=== PATIENT | female | born 1940 | race Hispanic/Latino ===

== ENCOUNTER 2017-04-18 14:08 | Outpatient (CLI) | payer MEDICARE ==
--- NOTE | 2017-04-18 15:39 | RAD ---
CERVICAL SPINE THREE VIEWS: History: 76-year-old female with history of radiculopathy of the cervical region. FINDINGS: Neutral, flexion, and extension lateral views of the cervical spine are performed. There are disc osteophytosis changes with disc space narrowing at C5-6. There is mild disc disease at C6-7. There is generalized facet arthrorisis. No evidence for abnormal translation between flexion a nd extension. No prevertebral soft tissue swelling. IMPRESSION: Extensive disc osteophytosis with disc space narrowing at C5-6 without evidence of abnormal translati on between flexion and extension. POS: [facility]
--- NOTE | 2017-04-18 15:45 | MRI ---
MRI OF THE CERVICAL SPINE WITHOUT CONTRAST: INDICATION: Neck pain with radicular symptoms and into the left arm and left thumb for 3 weeks. History of fall 15 years ago without history of surgery. COMPARISON: None. TECHNIQUE: Multiplanar, multisequence MR images were obtained of the cervical spine without IV contrast. FINDINGS: The bone marrow signal intensity appears within normal limits. No acute fracture is evident. There is reversible of normal cervical lordosis. Visualized aspects of the posterior fossa are normal-appearing. Visualized aspects of the prevertebral soft tissues are normal-appearing. At C2-C3, there is severe left and mild right facet joint degenerative change. There is uncovertebra l hypertrophy in combination with the facet joint causing mild left neural foraminal narrowing. At C3-4, there is broad-based bulge with uncovertebral hypertrophy and facet joint degenerative kelly e. Constellation of findings induces mild central canal narrowing without cord compression. There i s mild right neural foraminal narrowing. At C4-5, there is a mild broad-based disk bulge causing mild central canal narrowing and mild ventral effacement of the spinal cord without cord signal abnormality. There is uncovertebral hypertrophy a nd facet joint degenerative change inducing mild bilateral neural foraminal narrowing. At C5-6, there is a broad-based disk-osteophyte complex with uncovertebral hypertrophy with fact join t degenerative change inducing mild central canal narrowing and mild ventral effacement of the spinal cord without spinal cord signal abnormality. The uncovertebral hypertrophy and facet degenerative c hange at this level induces severe bilateral neural foraminal narrowing. At C6-7, there is a broad-based bulge with uncovertebral hypertrophy and facet joint degenerative nereida nge. The uncovertebral hypertrophy is prominent bilaterally and induces severe bilateral neural fora haile narrowing. The broad-based bulge causes mild central canal narrowing at this level without cor d contact. C7-T1, there is a mild broad-based bulge causing mild bilateral neural foraminal narrowing. 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 This is most severe at the C5-6 level where there is mild to moderate central canal narrowing with mild ventral effacement of the spinal cord. POS: [facility]
== END 2017-04-18 14:09 | disposition home or self-care (01) ==
LOC: MRI 14:08
PROVIDERS: ATTEND Nurse Practitioner Family
DX: M47.22 Other spondylosis with radiculopathy, cervical region (principal); M25.78 Osteophyte, vertebrae; M99.81 Other biomechanical lesions of cervical region
CPT/HCPCS: 72050; 72141

== ENCOUNTER 2018-01-25 05:53 | Inpatient (IN) | payer MEDICARE ==
[2018-01-23 10:37] LABS: #Eosinphils 0.3 thou/uL (0.0-0.7); #Lymphocytes 2.1 thou/uL (1.20-3.40); #Monocytes 0.8 thou/uL (0.11-0.59); #Neutrophils 3.9 thou/uL (1.40-6.50); %Basophils 0.7 % (0.0-1.0); %Lymphocytes 29.2 % (21.0-51.0); %Monocytes 10.9 % (0.0-10.0); %Neutrophils 55.2 % (42.0-75.0); Hemoglobin 12.3 g/dL (12.0-16.0); Mean Corpuscular HGB CONC 32.6 g/dL (32.0-36.0); Mean Corpuscular Hemoglobin 30.2 pg (27.0-31.0); Mean Corpuscular Volume 92.4 fL (78.0-98.0); Mean Platelet Volume 8.7 fL (7.4-10.4); Platelet Count 282 thou/uL (130-400); Red Blood Cell (RBC) Count 4.08 mill/uL (4.20-5.40); White Blood Cell (WBC) Count 7.1 thou/uL (4.8-10.8)
[2018-01-23 10:56] LABS: Anion Gap 11 mmol/L (10-20); BUN (Urea Nitrogen) 18 mg/dL (9.8-20.1); Calc. Creatinine Clearance 0 mL/min (70-130); Calcium 9.4 mg/dL (7.8-10.44); Carbon Dioxide 27 mmol/L (23-31); Chloride 103 mmol/L (98-107); Estimated GFR-MDRD 54; Glucose 228 mg/dL (83-110); Potassium 4.2 mmol/L (3.5-5.1); Sodium 137 mmol/L (136-145)
[~2018-01-25 05:53] MED LIST: Fentanyl 250 MCG/5 ML VIAL ONE; Norepinephrine 4 MG/4 ML VIAL ONE
[2018-01-25] MEDS ORDERED: CEFAZOLIN 2 GM/50 ML BAG ONE (06:17)
[2018-01-25] MEDS ORDERED: Albumin 5% 500 ML ONE (06:26)
[2018-01-25] MEDS ORDERED: Insulin Regular 300 UNITS/3 ML VIAL ONE (07:09)
[2018-01-25] MEDS ORDERED: Heparin 10,000 UNITS/1 ML VIAL 30,000 UNITS in Sodium Chloride 0.9% 1,000 ML IVPB SCH (07:15)
[2018-01-25] MEDS ORDERED: Magnesium 5 GM/10 ML VIAL ONE (09:04)
[2018-01-25] MEDS ORDERED: Mannitol 12.5 GM/50 ML ONE (09:04)
[2018-01-25] MEDS ORDERED: Calcium Chloride 1 GM/10 ML Abboject SYRINGE ONE (09:04)
[2018-01-25] MEDS ORDERED: Thrombin 5000 UNITS/5 ML VIAL ONE (09:04)
[2018-01-25] MEDS ORDERED: Heparin 30,000 units/30 ml VIAL ONE (09:04)
[2018-01-25] MEDS ORDERED: PROPOFOL 200 MG/20 ML VIAL ONE (09:04)
[2018-01-25] MEDS ORDERED: Succinylcholine Chloride 20 MG/ML 10 ml SYRINGE FS ONE (09:04)
[2018-01-25] MEDS ORDERED: Protamine Sulfate 250 MG/25 ML VIAL ONE (09:04)
[2018-01-25] MEDS ORDERED: Heparin 5,000 UNITS/ML VIAL ONE (09:04)
[2018-01-25] MEDS ORDERED: Aminocaproic Acid 5 GM/20 ML VIAL ONE (09:04)
[2018-01-25] MEDS ORDERED: Lidocaine 2% PF 100 mg/5 ml Syringe ONE (09:04)
[2018-01-25] MEDS ORDERED: Potassium Chloride 60 MEQ/30 ML VIAL ONE (09:04)
[2018-01-25] MEDS ORDERED: Papaverine 60 MG/2 ML VIAL ONE (09:04)
[2018-01-25] MEDS ORDERED: EPINEPHrine 1 MG/ML AMP ONE (09:04)
[2018-01-25] MEDS ORDERED: Sodium Bicarb 50 MEQ/50 ML VIAL ONE (09:04)
[2018-01-25] MEDS ORDERED: Lidocaine 1% PF 5 ML VIAL ONE (09:04)
[2018-01-25] MEDS ORDERED: Cardioplegic Soln 1,000 ML BAG ONE (09:04)
[2018-01-25] MEDS ORDERED: Bisacodyl 10 MG SUPP PR PRN (12:14)
[2018-01-25] MEDS ORDERED: hydrALAZINE 20 MG/ML VIAL SLOW IVP PRN (12:14)
[2018-01-25] MEDS ORDERED: Guaifenesin DM 100-10/5 ML UDCUP PO PRN (12:14)
[2018-01-25] MEDS ORDERED: Mag-Al 1200 mg/1200 mg/30 ML UDCUP PO PRN (12:14)
[2018-01-25] MEDS ORDERED: Nitroglycerin 50 MG/250 ML BOT 250 ML IVPB PRN (12:14)
[2018-01-25] MEDS ORDERED: Post-Op Insulin Drip Protocol IVPB ONE (12:14)
[2018-01-25] MEDS ORDERED: Norepinephrine 8 MG/0.9% NS 250 ML IVPB PRN (12:14)
[2018-01-25] MEDS ORDERED: Ondansetron PF 4 MG/2 ML Vial IVP PRN (12:14)
[2018-01-25] MEDS ORDERED: DOPamine 400 MG/D5W 250 ML 250 ML IVPB PRN (12:14)
[2018-01-25] MEDS ORDERED: Bisacodyl 5 MG TAB PO PRN (12:14)
[2018-01-25] MEDS ORDERED: Fentanyl 100 MCG/2 ML VIAL SLOW IVP PRN (12:14)
[2018-01-25] MEDS ORDERED: Promethazine HCl 25 MG/ML VIAL IM PRN (12:14)
[2018-01-25] MEDS ORDERED: Acetaminophen 325 MG TAB PO PRN (12:14)
[2018-01-25] MEDS ORDERED: Hetastarch 6% 500 ML 500 ML IVPB PRN (12:14)
[2018-01-25] MEDS ORDERED: Magnesium Sulfate 5 GM in Sodium Chloride 0.9% 250 ML 1,000 ML IV SCH (12:15)
[2018-01-25] MEDS ORDERED: Dextrose 50% Abboject 50 ML SYRINGE SLOW IVP PRN (12:47)
[2018-01-25] MEDS ORDERED: Dextrose 5% in Water 1,000 ML IV PRN (12:47)
[2018-01-25] MEDS ORDERED: Norepinephrine 8 MG/0.9% NS 250 ML ONE (12:56)
[2018-01-25 12:59] LABS: Hemoglobin 10.3 g/dL (12.0-16.0); Mean Corpuscular HGB CONC 32.8 g/dL (32.0-36.0); Mean Corpuscular Volume 94.5 fL (78.0-98.0); Mean Platelet Volume 8.6 fL (7.4-10.4); Platelet Count 196 thou/uL (130-400); Red Blood Cell (RBC) Count 3.31 mill/uL (4.20-5.40)
[2018-01-25 13:04] LABS: INR-International Normal Ratio 1.3; PTT 30.5 SEC (22.9-36.1); Prothrombin Time 16.6 SEC (12.0-14.7)
[2018-01-25] MEDS: Sodium Chloride 0.9% 1,000 ML IV SCH ×2 (13:08→22:40)
[2018-01-25] MEDS: Insulin Regular 300 UNITS/3 ML VIAL SC PRN ×2 (13:08→13:58)
[2018-01-25 13:13] LABS: Base Excess (BEa) -5.1 mEq/L (-2.0 to +3.0); CO2 Tension 36.8 mmHg (35.0-45.0); Calcium, Ionized 1.09 mmol/L (1.12-1.30); Carboxyhemoglobin (COHb) 0.8 gm% (0.0-3.0); Hemoglobin (Hb) 10.9 g/dL (12.0-16.0); O2 Tension (PaO2) 90.3 mmHg (> 70.0); pH, Arterial 7.35 (7.35-7.45)
[2018-01-25 13:14] LABS: Puncture Site ALINE
[2018-01-25 13:18] LABS: Band 15 % (5-11); Lymphocytes 12 % (21-51); MDiff Complete? YES; Monocytes 3 % (0-10); Neutrophil 70 % (42-75); PLT Morphology Comment Appears Adequate; Polychromasia SLIGHT = 2-3 cells (100X) (0-2/hpf)
[2018-01-25 13:21] LABS: Anion Gap 11 mmol/L (10-20); BUN (Urea Nitrogen) 15 mg/dL (9.8-20.1); Calc. Creatinine Clearance 81 mL/min (70-130); Calcium 7.8 mg/dL (7.8-10.44); Carbon Dioxide 21 mmol/L (23-31); Chloride 113 mmol/L (98-107); Estimated GFR-MDRD 74; Glucose 165 mg/dL (83-110); Sodium 141 mmol/L (136-145)
[2018-01-25] MEDS: CEFAZOLIN 2 GM/50 ML BAG IVPB SCH ×2 (14:01→21:07)
[2018-01-25] MEDS: Potassium Chloride 20 MEQ/100 ML PREMIX BAG IVPB PRN (14:31)
--- NOTE | 2018-01-25 14:47 | RAD ---
RADIOGRAPH CHEST 1 VIEW: Date: 01-25-18 Time: 12:52 p.m. HISTORY: 77-year-old female status post open heart surgery. COMPARISON: 06-09-16 FINDINGS: There is a supine image, which is insensitive for pneumothorax. New sternotomy wires. The following n ew life support lines have been placed: ET tube with distal tip in midthoracic trachea, right subclav cipriano line with distal tip overlying the lower portion of right atrium, left paramedian chest tube with distal portion curled over the left midlung field. No consolidation or pulmonary edema. IMPRESSION: Recently status post coronary artery bypass graft surgery with life support lines as above. JOSÉ MIGUEL POS: [facility]
[2018-01-25] MEDS: Fentanyl 100 MCG/2 ML VIAL SLOW IVP PRN (15:31)
[2018-01-25] MEDS ORDERED: Sodium Bicarb 50 MEQ/50 ML Abboject 8.4% SYRINGE ONE (16:16)
[2018-01-25] MEDS: Ketorolac Tromethamine 30 MG/ML VIAL IVP SCH ×2 (16:36→22:35)
--- NOTE | 2018-01-25 17:37 | PDOC.CTH ---
<Megha Andrade - Last Filed: 01/25/18 17:38> Cardiology Progress Note - Subjective The pt seen and examined. No overnight events. No cardiac complaints. - Objective Vital Signs Temp Pulse Resp BP Pulse Ox 01/25/18 16:25 99 01/25/18 16:00 98.4 F 100 01/25/18 14:00 13 01/25/18 12:51 72 121/50 L 01/25/18 12:37 97.7 F 13 100 Weight 193 lb 1.999 oz 01/24/18 01/25/18 01/26/18 06:59 06:59 06:59 Intake Total 850 Output Total 615 Balance 235 - Physical Examination General/Neuro: alert & oriented x3 Neck: no JVD present Lungs: other: (diminished at bases) Heart: RRR Abdomen: soft Extremities: other: (No edema;) - Telemetry Telemetry Rhythm: SR - Labs Result Diagrams: 01/25/18 12:45 01/25/18 12:45 - Assessment/Plan 1. CAD with s/p CABG on 01/25/18 - stable; On ASA 325mg qd. 2. HTN - hypotensive; holding BBlocker/LUH 3. Hyperlipidemia - will resume Statin when she is stable 4. Insulin depend DM - on Insulin drip MAR reviewed Review of Systems - Review of Systems Constitutional: reports: weakness EENTM: reports: no symptoms reported Respiratory: reports: no symptoms reported Cardiac (ROS): reports: no symptoms reported ABD/GI: reports: no symptoms reported : reports: no symptoms reported Musculoskeletal: reports: no symptoms reported <Julián Lopez - Last Filed: 01/25/18 19:39> Cardiology Progress Note - Objective Vital Signs Temp Pulse Resp BP Pulse Ox 01/25/18 16:25 99 01/25/18 16:00 98.4 F 100 01/25/18 14:00 13 01/25/18 12:51 72 121/50 L 01/25/18 12:37 97.7 F 13 100 Weight 193 lb 1.999 oz 01/24/18 01/25/18 01/26/18 06:59 06:59 06:59 Intake Total 1926 Output Total 705 Balance 1221 - Labs Result Diagrams: 01/25/18 17:56 01/25/18 17:56 - Assessment/Plan pt. seen and eval. by me. I agree with the A/P by the EXPERIMENTAL FLIGHT TEST MECHANIC. Pt. doing well post op. Extubated. RRR,chest clear.
[2018-01-25 18:02] LABS: Hemoglobin 9.4 g/dL (12.0-16.0)
[2018-01-25 18:22] LABS: Potassium 4.1 mmol/L (3.5-5.1)
[2018-01-25] MEDS ORDERED: HEXTEND 6% LR 500ML 500 ML IVPB PRN (19:40)
--- NOTE | 2018-01-25 20:11 | EKG ---
Test Reason : POST CABG Blood Pressure : / mmHG Vent. Rate : 068 BPM Atrial Rate : 068 BPM P-R Int : 154 ms QRS Dur : 132 ms QT Int : 508 ms P-R-T Axes : 051 -22 040 degrees QTc Int : 540 ms Normal sinus rhythm Left bundle branch block Abnormal ECG When compared with ECG of 21-AUG-2015 12:49, Vent. rate has decreased BY 38 BPM Left bundle branch block is now Present Minimal criteria for Anterior infarct are no longer Present Confirmed by DENNIS GARCES, DR. Tanner ([id number]) on 01/25/2018 8:11:19 PM Referred By: KALANI Confirmed By:DR. Ciro COLLINS MD
[2018-01-25] MEDS: Famotidine/PF 20 mg/2ml Vial SLOW IVP SCH (21:07)
[2018-01-26] MEDS: HYDROcodone/Acetaminophen 5/325 mg Tablet PO PRN ×6 (04:51→22:15)
[2018-01-26 04:56] LABS: #Basophils 0.1 thou/uL (0.0-0.2); #Lymphocytes 1.7 thou/uL (1.20-3.40); #Monocytes 1.6 thou/uL (0.11-0.59); #Neutrophils 13.5 thou/uL (1.40-6.50); %Basophils 0.3 % (0.0-1.0); %Eosinophils 0.1 % (0.0-10.0); %Monocytes 9.4 % (0.0-10.0); %Neutrophils 80.3 % (42.0-75.0); Hemoglobin 8.5 g/dL (12.0-16.0); Mean Corpuscular HGB CONC 33.5 g/dL (32.0-36.0); Mean Corpuscular Hemoglobin 31.7 pg (27.0-31.0); Mean Corpuscular Volume 94.4 fL (78.0-98.0); Mean Platelet Volume 8.8 fL (7.4-10.4); Platelet Count 203 thou/uL (130-400); RBC Distribution Width 11.1 % (11.5-14.5); Red Blood Cell (RBC) Count 2.69 mill/uL (4.20-5.40); White Blood Cell (WBC) Count 16.9 thou/uL (4.8-10.8)
[2018-01-26 05:10] LABS: Anion Gap 9 mmol/L (10-20); BUN (Urea Nitrogen) 17 mg/dL (9.8-20.1); Calc. Creatinine Clearance 81 mL/min (70-130); Calcium 7.6 mg/dL (7.8-10.44); Carbon Dioxide 24 mmol/L (23-31); Chloride 112 mmol/L (98-107); Estimated GFR-MDRD 68; Glucose 125 mg/dL (83-110); Potassium 3.9 mmol/L (3.5-5.1); Sodium 141 mmol/L (136-145)
[2018-01-26] MEDS: Ketorolac Tromethamine 30 MG/ML VIAL IVP SCH (05:29)
[2018-01-26] MEDS: CEFAZOLIN 2 GM/50 ML BAG IVPB SCH (05:36)
[2018-01-26] MEDS: Potassium Chloride 20 MEQ/100 ML PREMIX BAG IVPB PRN (05:45)
--- NOTE | 2018-01-26 07:58 | RAD ---
SINGLE VIEW CHEST: Date: 01/26/18 HISTORY: Status post open heart surgery. FINDINGS: Single view of chest shows an enlarged cardiomediastinal silhouette. The patient is status post CABG. Endotracheal tube has been removed. A central venous catheter is unchanged in position. There is no evidence of consolidation, mass, or pleural effusion. IMPRESSION: Stable exam status post extubation. POS: [facility]
[2018-01-26] MEDS ORDERED: Aspirin 325 MG TAB PO SCH (09:00)
--- NOTE | 2018-01-26 09:06 | OP ---
DATE OF PROCEDURE: 01/25/2018 PREOPERATIVE DIAGNOSIS: Coronary artery disease. PROCEDURES PERFORMED: Coronary artery bypass graft x4, left internal mammary artery, good quality to a 2.5 mm mid left anterior descending; saphenous vein large to a 3 to 3.5 mm main right coronary artery just at the bifurcation; saphenous vein graft to 1.5 mm ramus, 1.25 to 1.5 mm OM. ACCOUNT RETENTION REPRESENTATIVE: None. ANESTHESIA: General. TRANSFUSION: None. FINDINGS: The patient had very little working room within the mediastinum and as such, grafts were probably adjacent to the chest wall at the conclusion of the procedure. DESCRIPTION OF PROCEDURE: After endovascular vein harvest of the left greater saphenous vein had been performed, a median sternotomy was carried out. Left internal mammary artery was harvested and chest entered in one small area. Heparinization was carried out and the mammary divided distally and passed posterior to the thymus gland. Pericardial traction sutures were then placed to allow access to the aorta and the aorta was cannulated above the pericardial reflection. Right atrial appendage was rudimentary and was cannulated. Following institution of cardiopulmonary bypass, vessels were inspected for grafting. Aorta cross-clamped and a liter of cold blood cardioplegia was given. Following this, 3 distal vein anastomosis were completed with 7-0 prolene sutures passing 1.5 mm probe distally in the OM prior to tying the suture line and it was snug fit. LAD was then opened and left internal mammary artery anastomosed here. Following completion of this, cross clamp was removed, partial occluding clamp placed, and 2 proximal anastomosis performed on the aortic root using the OM in the right coronary graft from the aorta. Following this, the diagonal graft was anastomosed to the side of the OM graft about a centimeter from the aortic root. Proximal and distal anastomosis were examined. The patient was weaned from cardiopulmonary bypass reinforcing both atrial and aortic suture lines with prolene suture. Mediastinal and left pleural drains were placed. As mentioned, the vein graft to the right coronary artery coursed in the AV groove and was immediately adjacent to the sternum. The mammary artery was also immediately adjacent to the sternum as it coursed from subclavian artery towards the LAD. Vancomycin paste was used, #7 wire and then the subcutaneous tissue and skin were closed in layers with platelet-rich blood and platelet-poor plasma. The patient tolerated the procedure and was taken to the ICU in guarded condition. Job ID: [id number]
[2018-01-26] MEDS: Famotidine/PF 20 mg/2ml Vial SLOW IVP SCH ×2 (09:19→20:21)
[2018-01-26] MEDS: Sodium Chloride 0.9% 1,000 ML IV SCH ×3 (10:17→21:22)
[2018-01-26 12:06] LABS: Actual Bicarbonate (HCO3a) 20.2 mEq/L (22-28); Analyzer IN Cardio OR; Base Excess (BEa) -2.6 mEq/L (-2.0 to +3.0); CO2 Tension 28.9 mmHg (35.0-45.0); Carboxyhemoglobin (COHb) 0.4 gm% (0.0-3.0); Hemoglobin (Hb) 11.7 g/dL (12.0-16.0); O2 Tension (PaO2) 413.6 mmHg (> 70.0); Potassium - ABG Lab 3.59 mmol/L (3.70-5.30); pH, Arterial 7.46 (7.35-7.45)
[2018-01-26 12:06] LABS: Actual Bicarbonate (HCO3a) 19.1 mEq/L (22-28); Analyzer IN Cardio OR; Base Excess (BEa) -5.1 mEq/L (-2.0 to +3.0); CO2 Tension 32.7 mmHg (35.0-45.0); Calcium, Ionized 1.08 mmol/L (1.12-1.30); Carboxyhemoglobin (COHb) 0.3 gm% (0.0-3.0); Hemoglobin (Hb) 11.4 g/dL (12.0-16.0); O2 Tension (PaO2) 421.5 mmHg (> 70.0); Potassium - ABG Lab 3.37 mmol/L (3.70-5.30); pH, Arterial 7.39 (7.35-7.45)
--- NOTE | 2018-01-26 12:06 | PDOC.CTH ---
<Megha Andrade - Last Filed: 01/26/18 12:05> Cardiology Progress Note - Subjective The pt seen and examined. No overnight events. No cardiac complaints. - Objective Vital Signs Temp Pulse Ox 01/26/18 08:00 96 01/26/18 07:00 98.4 F 01/26/18 06:50 95 01/26/18 04:00 98.2 F Weight 187 lb 9.814 oz 01/25/18 01/26/18 01/27/18 06:59 06:59 06:59 Intake Total 3146 550 Output Total 1670 205 Balance 1476 345 - Physical Examination General/Neuro: alert & oriented x3 Neck: no JVD present Lungs: other: (diminished at bases) Heart: RRR Abdomen: soft Extremities: other: (No edema) - Telemetry Telemetry Rhythm: SR - Labs Result Diagrams: 01/26/18 04:30 01/26/18 04:30 - Assessment/Plan 1. CAD with s/p CABG on 01/25/18 - stable; On ASA 325mg qd. 2. HTN - hypotensive and on Levophed drip; holding BBlocker/LUH 3. Hyperlipidemia - will resume Statin when she is stable 4. Insulin depend DM - on Insulin drip MAR reviewed Review of Systems - Review of Systems Constitutional: reports: no symptoms reported EENTM: reports: no symptoms reported Respiratory: reports: no symptoms reported Cardiac (ROS): reports: no symptoms reported ABD/GI: reports: no symptoms reported <Julián Lopez - Last Filed: 01/26/18 17:17> Cardiology Progress Note - Objective Vital Signs Temp Pulse Ox 01/26/18 12:00 98.6 F 01/26/18 08:00 96 01/26/18 07:00 98.4 F 01/26/18 06:50 95 Weight 195 lb 8.8 oz 01/25/18 01/26/18 01/27/18 06:59 06:59 06:59 Intake Total 3146 826.2 Output Total 1670 431 Balance 1476 395.2 - Labs Result Diagrams: 01/26/18 04:30 01/26/18 04:30 - Assessment/Plan Pt. seen nad eval. by me. I agree with thew A/P by the WIND INSTRUMENT REPAIRER. Still on pressors. May be vol. low.Chest clear. RRR.
[2018-01-26 12:07] LABS: Actual Bicarbonate (HCO3a) 19.8 mEq/L (22-28); Analyzer IN Cardio OR; Base Excess (BEa) -4.1 mEq/L (-2.0 to +3.0); CO2 Tension 31.1 mmHg (35.0-45.0); Calcium, Ionized 0.98 mmol/L (1.12-1.30); Carboxyhemoglobin (COHb) 0.3 gm% (0.0-3.0); Hemoglobin (Hb) 7.9 g/dL (12.0-16.0); O2 Tension (PaO2) 363.4 mmHg (> 70.0); Potassium - ABG Lab 3.86 mmol/L (3.70-5.30); pH, Arterial 7.42 (7.35-7.45)
[2018-01-26 12:07] LABS: Actual Bicarbonate (HCO3v) 21 mEq/L (22-28); Analyzer IN Cardio OR; Base Excess -2.5 mEq/L (-2.0 to +3.0); Calcium, Ionized 0.92 mmol/L (1.16-1.32); Chloride (ABG LAB) 109 mmol/L (98-106); Hemoglobin (Hb) 8.3 g/dL (11.7-16.1); Potassium - ABG Lab 3.81 mmol/L (3.70-5.30); pH (venous) 7.42 (7.32-7.43)
[2018-01-26 12:07] LABS: Actual Bicarbonate (HCO3a) 26.1 mEq/L (22-28); Analyzer IN Cardio OR; Base Excess (BEa) 0.9 mEq/L (-2.0 to +3.0); CO2 Tension 44.6 mmHg (35.0-45.0); Calcium, Ionized 0.97 mmol/L (1.12-1.30); Carboxyhemoglobin (COHb) 0.4 gm% (0.0-3.0); Hemoglobin (Hb) 6.8 g/dL (12.0-16.0); O2 Tension (PaO2) 370.5 mmHg (> 70.0); Potassium - ABG Lab 3.99 mmol/L (3.70-5.30); pH, Arterial 7.39 (7.35-7.45)
[2018-01-26 12:08] LABS: Actual Bicarbonate (HCO3a) 22.8 mEq/L (22-28); Analyzer IN Cardio OR; CO2 Tension 33.8 mmHg (35.0-45.0); Calcium, Ionized 1.07 mmol/L (1.12-1.30); Carboxyhemoglobin (COHb) 0.5 gm% (0.0-3.0); Hemoglobin (Hb) 7.1 g/dL (12.0-16.0); O2 Tension (PaO2) 293.4 mmHg (> 70.0); Potassium - ABG Lab 3.88 mmol/L (3.70-5.30); pH, Arterial 7.45 (7.35-7.45)
[2018-01-26 12:08] LABS: Actual Bicarbonate (HCO3a) 23.1 mEq/L (22-28); Analyzer IN Cardio OR; CO2 Tension 40.7 mmHg (35.0-45.0); Calcium, Ionized 1.01 mmol/L (1.12-1.30); Carboxyhemoglobin (COHb) 0.5 gm% (0.0-3.0); O2 Tension (PaO2) 386.8 mmHg (> 70.0); Potassium - ABG Lab 4.17 mmol/L (3.70-5.30); pH, Arterial 7.37 (7.35-7.45)
[2018-01-26 12:09] LABS: Puncture Site ALINE
[2018-01-26 12:10] LABS: Puncture Site ALINE
[2018-01-26 12:11] LABS: Puncture Site ALINE
[2018-01-26 12:11] LABS: Puncture Site ALINE
[2018-01-26 12:11] LABS: Puncture Site ALINE
[2018-01-26 12:12] LABS: Puncture Site ALINE
[2018-01-26] MEDS ORDERED: Insulin Glargine 15 UNITS in Pre-Filled Syringe 1 EACH SC PRN (12:38)
[2018-01-26 13:26] VITALS: BMI 28.9
[2018-01-26] MEDS: Fentanyl 100 MCG/2 ML VIAL SLOW IVP PRN (20:16)
[2018-01-26] MEDS ORDERED: Insulin Glargine 20 UNITS in Pre-Filled Syringe 1 EACH SC SCH (21:00)
[2018-01-27] MEDS: HYDROcodone/Acetaminophen 5/325 mg Tablet PO PRN ×4 (02:07→20:55)
[2018-01-27 05:46] LABS: #Basophils 0.1 thou/uL (0.0-0.2); #Eosinphils 0.1 thou/uL (0.0-0.7); #Lymphocytes 1.7 thou/uL (1.20-3.40); #Monocytes 1.2 thou/uL (0.11-0.59); #Neutrophils 9.7 thou/uL (1.40-6.50); %Eosinophils 0.7 % (0.0-10.0); %Lymphocytes 13.5 % (21.0-51.0); %Monocytes 9.2 % (0.0-10.0); %Neutrophils 75.6 % (42.0-75.0); Hemoglobin 8.1 g/dL (12.0-16.0); Mean Corpuscular HGB CONC 33.8 g/dL (32.0-36.0); Mean Corpuscular Hemoglobin 32.3 pg (27.0-31.0); Mean Corpuscular Volume 95.4 fL (78.0-98.0); Mean Platelet Volume 8.6 fL (7.4-10.4); Platelet Count 173 thou/uL (130-400); RBC Distribution Width 11.2 % (11.5-14.5); Red Blood Cell (RBC) Count 2.49 mill/uL (4.20-5.40); White Blood Cell (WBC) Count 12.8 thou/uL (4.8-10.8)
[2018-01-27 06:00] LABS: Anion Gap 6 mmol/L (10-20); BUN (Urea Nitrogen) 16 mg/dL (9.8-20.1); Calc. Creatinine Clearance 86 mL/min (70-130); Calcium 7.1 mg/dL (7.8-10.44); Carbon Dioxide 24 mmol/L (23-31); Chloride 106 mmol/L (98-107); Estimated GFR-MDRD 70; Glucose 166 mg/dL (83-110); Potassium 4.2 mmol/L (3.5-5.1); Sodium 132 mmol/L (136-145)
[2018-01-27] MEDS ORDERED: Furosemide 40 MG/4 ML VIAL SLOW IVP SCH (06:15)
[2018-01-27] MEDS: Insulin Regular 300 UNITS/3 ML VIAL SC PRN ×3 (06:30→18:21)
[2018-01-27] MEDS ORDERED: Fentanyl 100 MCG/2 ML VIAL SLOW IVP PRN ×2 (06:41)
[2018-01-27] MEDS ORDERED: Bisacodyl 10 MG SUPP PR PRN (06:41)
[2018-01-27] MEDS ORDERED: Acetaminophen 325 MG TAB PO PRN (06:41)
[2018-01-27] MEDS ORDERED: Guaifenesin DM 100-10/5 ML UDCUP PO PRN (06:41)
[2018-01-27] MEDS ORDERED: Mineral Oil ENEMA PR PRN (06:41)
[2018-01-27] MEDS ORDERED: Nitroglycerin 0.4 MG TAB (25 Tab Bottle) SL PRN (06:41)
[2018-01-27] MEDS ORDERED: Bisacodyl 5 MG TAB PO PRN (06:41)
[2018-01-27] MEDS ORDERED: Mag-Al 1200 mg/1200 mg/30 ML UDCUP PO PRN (06:41)
[2018-01-27] MEDS ORDERED: Dextrose 50% Abboject 50 ML SYRINGE SLOW IVP PRN (07:25)
[2018-01-27] MEDS ORDERED: Dextrose 5% in Water 1,000 ML IV PRN (07:25)
--- NOTE | 2018-01-27 08:58 | RAD ---
CHEST 1 VIEW: Date: 01/27/18 INDICATION: History of open heart surgery. COMPARISON: Prior study dated 01/26/18. FINDINGS: Left-sided thoracostomy tube is unchanged. Right-sided subclavian central venous catheter is unchange d. Midline mediastinal drain is stable. Cardiomegaly persists. Post CABG change is similar appearing . There is slight worsening of the pulmonary vascular congestion with increasing perihilar edema in t he left lung. No pneumothorax is evidence. No acute osseous abnormality is noted. IMPRESSION: 1. Worsening cardiomegaly with pulmonary vascular congestion and perihilar edema, predominantly seen within the left lung, suspicious for volume overload or mild CHF. Continued follow-up is recommended . 2. Tubes and lines are stable. 3. No pneumothorax is demonstrated. POS: [facility]
[2018-01-27] MEDS ORDERED: Insulin Glargine 20 UNITS in Pre-Filled Syringe 1 EACH SC SCH (09:00)
[2018-01-27] MEDS ORDERED: Insulin Glargine 25 UNITS in Pre-Filled Syringe 1 EACH SC SCH ×2 (09:00→09:30)
[2018-01-27] MEDS: Aspirin 325 mg Enteric Coated Tablet PO SCH (09:37)
[2018-01-27] MEDS: Famotidine 20 MG TAB PO SCH ×2 (09:37→20:53)
[2018-01-27] MEDS: metFORMIN 500 MG TAB PO SCH ×2 (09:37→18:20)
[2018-01-27] MEDS: Potassium Chloride 10 MEQ TAB PO SCH (09:37)
[2018-01-27] MEDS: Polyethylene Glycol 3350 17 GM Packet PO SCH (09:37)
[2018-01-27] MEDS ORDERED: PARoxetine 20 MG TAB ONE (09:49)
[2018-01-27] MEDS ORDERED: Furosemide 40 MG TAB PO SCH (10:00)
--- NOTE | 2018-01-27 12:47 | PDOC.CTH ---
<Megha Andrade - Last Filed: 01/27/18 12:44> Cardiology Progress Note - Subjective The pt seen and examined. No overnight events. No cardiac complaints. - Objective Vital Signs Temp Pulse Resp BP Pulse Ox 01/27/18 08:03 98.4 F 82 20 110/74 98 01/27/18 07:57 98.4 F 82 20 110/74 98 01/27/18 04:00 98.3 F Weight 199 lb 15.348 oz 01/26/18 01/27/18 01/28/18 06:59 06:59 06:59 Intake Total 3146 3367.3 Output Total 1670 1376 Balance 1476 1991.3 - Physical Examination General/Neuro: alert & oriented x3 Neck: no JVD present Lungs: CTA Heart: RRR Abdomen: soft Extremities: other: - Telemetry Telemetry Rhythm: SR - Labs Result Diagrams: 01/27/18 05:25 01/27/18 05:25 - Assessment/Plan 1. CAD with s/p CABG on 01/25/18 - stable; On ASA 325mg qd. Not on Bblocker or LUH/ARB due to hypotensive; 2. HTN - Off Levophed this AM. Stable at this moment. holding BBlocker/LUH 3. Hyperlipidemia - resume Statin from tonight. 4. 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4 F 82 20 110/74 98 Weight 199 lb 15.348 oz 01/26/18 01/27/18 01/28/18 06:59 06:59 06:59 Intake Total 3146 3367.3 Output Total 9050 1376 800 Balance 1476 1990.3 -800 - Labs Result Diagrams: 01/27/18 05:25 01/27/18 05:25 - Assessment/Plan Pt. seen and eval. by me. I agree with the A/P by the HOT OILER.Chest clear. RRR. Stable post CABG. Resume betablockers tomorrow.
[2018-01-27] MEDS: Ondansetron PF 4 MG/2 ML Vial IVP PRN (16:33)
[2018-01-27] MEDS: Atorvastatin Calcium 20 MG TAB PO SCH (20:53)
[2018-01-27] MEDS ORDERED: PRE FILLED SC SCH (21:00)
[2018-01-27] MEDS ORDERED: INSULIN GLARGINE SC SCH (21:00)
[2018-01-27] MEDS: PRE FILLED SC SCH (21:04)
[2018-01-27] MEDS: INSULIN GLARGINE SC SCH (21:04)
[2018-01-28] MEDS: HYDROcodone/Acetaminophen 5/325 mg Tablet PO PRN ×4 (05:27→21:02)
[2018-01-28] MEDS: Aspirin 325 mg Enteric Coated Tablet PO SCH (08:37)
[2018-01-28] MEDS: Potassium Chloride 10 MEQ TAB PO SCH (08:37)
[2018-01-28] MEDS: Famotidine 20 MG TAB PO SCH ×2 (08:37→20:51)
[2018-01-28] MEDS: Furosemide 40 MG TAB PO SCH (08:37)
[2018-01-28] MEDS: metFORMIN 500 MG TAB PO SCH ×2 (08:37→16:02)
[2018-01-28] MEDS: Polyethylene Glycol 3350 17 GM Packet PO SCH (08:38)
[2018-01-28] MEDS ORDERED: Insulin Glargine 25 UNITS in Pre-Filled Syringe 1 EACH SC SCH (09:00)
[2018-01-28] MEDS ORDERED: Metolazone 5 MG TAB PO SCH (09:00)
[2018-01-28] MEDS ORDERED: Potassium Chloride 20 MEQ TAB PO SCH (12:00)
[2018-01-28] MEDS: Insulin Regular 300 UNITS/3 ML VIAL SC PRN ×3 (12:18→20:52)
[2018-01-28] MEDS: Ondansetron PF 4 MG/2 ML Vial IVP PRN (13:01)
[2018-01-28] MEDS: Atorvastatin Calcium 20 MG TAB PO SCH (20:51)
[2018-01-28] MEDS: INSULIN GLARGINE SC SCH (20:52)
[2018-01-28] MEDS: PRE FILLED SC SCH (20:52)
[2018-01-29] MEDS: HYDROcodone/Acetaminophen 5/325 mg Tablet PO PRN ×3 (05:40→17:11)
[2018-01-29] MEDS ORDERED: Insulin Glargine 30 UNITS in Pre-Filled Syringe 1 EACH SC SCH (08:20)
[2018-01-29] MEDS ORDERED: PRE FILLED SC SCH (08:20)
[2018-01-29] MEDS ORDERED: INSULIN GLARGINE SC SCH (08:20)
[2018-01-29] MEDS: Insulin Glargine 30 UNITS in Pre-Filled Syringe 1 EACH SC SCH (09:14)
[2018-01-29] MEDS: Polyethylene Glycol 3350 17 GM Packet PO SCH (09:14)
[2018-01-29] MEDS: Metoprolol Tartrate 25 MG TAB PO SCH ×2 (09:15→20:22)
[2018-01-29] MEDS: Aspirin 325 mg Enteric Coated Tablet PO SCH (09:15)
[2018-01-29] MEDS: metFORMIN 500 MG TAB PO SCH ×2 (09:15→17:11)
[2018-01-29] MEDS: Potassium Chloride 10 MEQ TAB PO SCH (09:16)
[2018-01-29] MEDS: Furosemide 40 MG TAB PO SCH (09:16)
[2018-01-29] MEDS: Famotidine 20 MG TAB PO SCH ×2 (09:16→20:23)
[2018-01-29] MEDS: Insulin Regular 300 UNITS/3 ML VIAL SC PRN (11:14)
[2018-01-29] MEDS: Atorvastatin Calcium 20 MG TAB PO SCH (20:22)
[2018-01-30] MEDS: HYDROcodone/Acetaminophen 5/325 mg Tablet PO PRN ×2 (01:42→12:38)
[2018-01-30] MEDS ORDERED: Sodium Chloride 0.9% 10 ML ONE (06:26)
[2018-01-30] MEDS: Furosemide 40 MG TAB PO SCH (08:28)
[2018-01-30] MEDS: Aspirin 325 mg Enteric Coated Tablet PO SCH (08:29)
[2018-01-30] MEDS: Metoprolol Tartrate 25 MG TAB PO SCH (08:29)
[2018-01-30] MEDS: metFORMIN 500 MG TAB PO SCH ×2 (08:29→17:12)
[2018-01-30] MEDS: Famotidine 20 MG TAB PO SCH (08:29)
[2018-01-30] MEDS: Potassium Chloride 10 MEQ TAB PO SCH (08:29)
[2018-01-30] MEDS: Polyethylene Glycol 3350 17 GM Packet PO SCH (08:29)
[2018-01-30] MEDS: Insulin Glargine 30 UNITS in Pre-Filled Syringe 1 EACH SC SCH (08:34)
[2018-01-30 09:25] VITALS: TEMP 98.1
[2018-01-30 13:35] LABS: Anion Gap 10 mmol/L (10-20); BUN (Urea Nitrogen) 18 mg/dL (9.8-20.1); Calc. Creatinine Clearance 82 mL/min (70-130); Carbon Dioxide 34 mmol/L (23-31); Chloride 98 mmol/L (98-107); Estimated GFR-MDRD 71; Glucose 140 mg/dL (83-110); Magnesium 1.5 mg/dL (1.6-2.6); Potassium 3.7 mmol/L (3.5-5.1); Sodium 138 mmol/L (136-145)
[2018-01-30] MEDS ORDERED: Magnesium 2 GM/50 ML 2 GM in Premix Bag 1 BAG IVPB SCH (15:00)
--- NOTE | 2018-01-30 15:02 | PDOC.CTH ---
Cardiology Progress Note - Subjective The pt seen and examined. No overnight events. No cardiac complaints. She has walked around the unit without any cardiac complaints. - Objective Vital Signs Temp Pulse Pulse Resp BP BP Pulse Ox 01/30/18 12:44 98.1 F 83 16 113/57 L 96 01/30/18 09:56 79 128/58 L 01/30/18 08:29 95 01/30/18 08:01 98.1 F 82 17 121/60 95 01/30/18 04:00 98.6 F 77 12 116/56 L 94 L Weight 188 lb 6 oz 01/29/18 01/30/18 01/31/18 06:59 06:59 06:59 Intake Total 1260 Output Total 3000 Balance -1740 - Physical Examination General/Neuro: alert & oriented x3 Neck: no JVD present Lungs: CTA (diminished at bases) Heart: RRR Abdomen: soft Extremities: other: (No edema) - Telemetry Telemetry Rhythm: SR - Labs Result Diagrams: 01/27/18 05:25 01/30/18 12:54 - Assessment/Plan 1. CAD with s/p CABG on 01/25/18 - stable; On ASA 325mg qd, Metoprolol 12.5mg BID and Lipitor 40mg qd. 2. HTN - Stable with bblocker. 3. Hyperlipidemia - on Statin 4. Insulin depend DM - ACHS BS check with SS Insulin. managed by PCP. MAR reviewed * From Cardiac standpoint, the pt is stable to tx to Rehab. The pt will f/u with Dr Lopez' office within 10 days. Review of Systems - Review of Systems Constitutional: reports: weakness EENTM: reports: no symptoms reported Respiratory: reports: no symptoms reported Cardiac (ROS): reports: no symptoms reported ABD/GI: reports: no symptoms reported : reports: no symptoms reported Musculoskeletal: reports: no symptoms reported Skin: reports: no symptoms reported
[2018-01-30 16:43] VITALS: BP 111/55
[2018-01-30] MEDS ORDERED: Atorvastatin Calcium 40 MG TAB PO SCH (21:00)
== END 2018-01-30 19:18 | DRG 236 ==
LOC: SURG A 05:53 → EDSTATUS 10:15 → CCU 12:46 → 2NO 01-27 18:58
PROVIDERS: ADMIT Thoracic Surgery (Cardiothoracic Vascular Surgery); ATTEND Thoracic Surgery (Cardiothoracic Vascular Surgery)
PROC: 02100Z9 Bypass Coronary Artery, One Artery from Left Internal Mammary, Open Approach (ICD-10-PCS; principal; 2018-01-25)
PROC: 021209W Bypass Coronary Artery, Three Arteries from Aorta with Autologous Venous Tissue, Open Approach (ICD-10-PCS; 2018-01-25)
PROC: 06BQ4ZZ Excision of Left Saphenous Vein, Percutaneous Endoscopic Approach (ICD-10-PCS; 2018-01-25)
PROC: 5A1221Z Performance of Cardiac Output, Continuous (ICD-10-PCS; 2018-01-25)
DX: I25.10 Atherosclerotic heart disease of native coronary artery without angina pectoris (principal); I12.9 Hypertensive chronic kidney disease with stage 1 through stage 4 chronic kidney disease, or unspecified chronic kidney disease; E11.22 Type 2 diabetes mellitus with diabetic chronic kidney disease; E78.2 Mixed hyperlipidemia; N18.9 Chronic kidney disease, unspecified; M10.9 Gout, unspecified; Z88.2 Allergy status to sulfonamides; Z79.4 Long term (current) use of insulin; Z79.82 Long term (current) use of aspirin; Z79.899 Other long term (current) drug therapy
CPT/HCPCS: 36416; 36430; 71045; 80048; 82805; 83735; 85025; 85610; 85730; 86850; 86900; 86901; 93005; 93010; 93798; 94002; 94150; G8978-GP-CI; G8979-GP-CI; G8980-GP-CI; G8987-GO-CK; G8988-GO-CI; J0171; J1642; J1644; J1815; J1885; J1940; J2001; J2150; J2405; J2440; J2704; J2720; J3010; J3370; J3475; J3480; J3490; J7050; P9045; S0017; S0028

== ENCOUNTER 2018-02-20 16:16 | Emergency (ER) | payer MEDICARE ==
[2018-02-20 16:59] LABS: #Eosinphils 0.4 thou/uL (0.0-0.7); #Lymphocytes 2.3 thou/uL (1.20-3.40); #Monocytes 0.9 thou/uL (0.11-0.59); #Neutrophils 8.7 thou/uL (1.40-6.50); %Basophils 0.3 % (0.0-1.0); %Eosinophils 3.4 % (0.0-10.0); %Lymphocytes 18.4 % (21.0-51.0); %Monocytes 7.6 % (0.0-10.0); %Neutrophils 70.3 % (42.0-75.0); Hemoglobin 11.3 g/dL (12.0-16.0); Mean Corpuscular HGB CONC 33.2 g/dL (32.0-36.0); Mean Corpuscular Hemoglobin 30.7 pg (27.0-31.0); Mean Corpuscular Volume 92.7 fL (78.0-98.0); Mean Platelet Volume 7.7 fL (7.4-10.4); Platelet Count 394 thou/uL (130-400); Red Blood Cell (RBC) Count 3.67 mill/uL (4.20-5.40); White Blood Cell (WBC) Count 12.3 thou/uL (4.8-10.8)
--- NOTE | 2018-02-20 17:01 | RAD ---
TWO VIEWS CHEST: Comparison: 01-27-18 History: Recent open heart surgery. The patient's incision has opened up and is draining yellow fluid . FINDINGS: The patient is status post CABG. There is no evidence of consolidation, mass or pleural effusion. IMPRESSION: No evidence of acute cardiopulmonary disease. POS: [facility]
[2018-02-20 17:19] LABS: ALT (SGPT) 23 U/L (8-55); AST (SGOT) 23 U/L (5-34); Albumin 3.6 g/dL (3.4-4.8); Alkaline Phosphatase 148 U/L (40-150); Anion Gap 17 mmol/L (10-20); BUN (Urea Nitrogen) 18 mg/dL (9.8-20.1); Bilirubin, Total 0.3 mg/dL (0.2-1.2); Calc. Creatinine Clearance 0 mL/min (70-130); Calcium 9.3 mg/dL (7.8-10.44); Carbon Dioxide 25 mmol/L (23-31); Chloride 99 mmol/L (98-107); Estimated GFR-MDRD 73; Globulin 3.9 g/dL (2.4-3.5); Glucose 185 mg/dL (83-110); Potassium 3.9 mmol/L (3.5-5.1); Protein, Total 7.5 g/dL (6.0-8.3); Sodium 137 mmol/L (136-145)
== END 2018-02-20 18:50 | disposition home or self-care (01) ==
LOC: ERS 16:16
DX: Z48.817 Encounter for surgical aftercare following surgery on the skin and subcutaneous tissue (principal)
CPT/HCPCS: 36415; 71045; 80053; 83605; 84484; 85025; 93005; 94760

== ENCOUNTER 2018-04-27 12:42 | Emergency (ER) | payer MEDICARE ==
[2018-04-27 13:12] LABS: Hemoglobin 13.7 g/dL (12.0-16.0); Mean Corpuscular HGB CONC 32.2 g/dL (32.0-36.0); Mean Corpuscular Hemoglobin 30.3 pg (27.0-31.0); Mean Corpuscular Volume 94.2 fL (78.0-98.0); Mean Platelet Volume 9.8 fL (7.4-10.4); Platelet Count 258 thou/uL (130-400); RBC Distribution Width 12.5 % (11.5-14.5); Red Blood Cell (RBC) Count 4.53 mill/uL (4.20-5.40); White Blood Cell (WBC) Count 10.4 thou/uL (4.8-10.8)
[2018-04-27 13:32] LABS: ALT (SGPT) 23 U/L (8-55); AST (SGOT) 16 U/L (5-34); Albumin 4.2 g/dL (3.4-4.8); Alkaline Phosphatase 82 U/L (40-150); Anion Gap 14 mmol/L (10-20); BUN (Urea Nitrogen) 19 mg/dL (9.8-20.1); Bilirubin, Total 0.3 mg/dL (0.2-1.2); Calc. Creatinine Clearance 0 mL/min (70-130); Calcium 9.9 mg/dL (7.8-10.44); Carbon Dioxide 26 mmol/L (23-31); Chloride 100 mmol/L (98-107); Estimated GFR-MDRD 66; Globulin 3.5 g/dL (2.4-3.5); Glucose 217 mg/dL (83-110); Potassium 4.2 mmol/L (3.5-5.1); Protein, Total 7.7 g/dL (6.0-8.3); Sodium 136 mmol/L (136-145)
[2018-04-27 13:36] LABS: Lymphocytes 37 % (21-51); MDiff Complete? YES; Monocytes 5 % (0-10); Neutrophil 58 % (42-75); Platelet Morphology Comment Appears Adequate
--- NOTE | 2018-04-27 13:59 | RAD ---
2 VIEWS CHEST: Date: 04/27/18 COMPARISON: 02/20/18. HISTORY: Hypertension. FINDINGS: Two views of the chest show normal sized cardiomediastinal silhouette. The patient is status post CAB G. There is no evidence of consolidation, mass, or pleural effusion. IMPRESSION: No evidence of acute cardiopulmonary disease. POS: [facility]
== END 2018-04-27 14:27 | disposition home or self-care (01) ==
LOC: ERS 12:42
DX: I10 Essential (primary) hypertension (principal); E11.9 Type 2 diabetes mellitus without complications; Z79.4 Long term (current) use of insulin; Z79.899 Other long term (current) drug therapy
CPT/HCPCS: 36415; 71046; 80053; 84484; 85025; 93005

== ENCOUNTER 2018-07-05 09:41 | Outpatient (CLI) | payer MEDICARE ==
--- NOTE | 2018-07-11 08:36 | MMO ---
Bilateral MAMMO Bilat Screen [facility]. CLINICAL HISTORY: Patient is 77 years old and is seen for screening. The patient has the following family history of breast cancer: daughter. VIEWS: The views performed were: bilateral craniocaudal with tomosynthesis and bilateral mediolateral oblique with tomosynthesis. MAMMOGRAM FINDINGS: There are scattered fibroglandular densities. There are stable benign appearing calcifications seen in both breasts. There are no suspicious masses, suspicious calcifications, or new areas of architectural distortion. IMPRESSION: THERE IS NO MAMMOGRAPHIC EVIDENCE OF MALIGNANCY. A ROUTINE FOLLOW-UP MAMMOGRAM IN 1 YEAR IS RECOMMENDED. THE RESULTS OF THIS EXAM WERE SENT TO THE PATIENT. ACR BI-RADS Category 2 - Benign finding MAMMOGRAPHY NOTE: 1. A negative mammogram report should not delay a biopsy if a dominant of clinically suspicious mass is present. 2. Approximately 10% to 15% of breast cancers are not detected by mammography. 3. Adenosis and dense breasts may obscure an underlying neoplasm.
== END 2018-07-05 09:42 | disposition home or self-care (01) ==
LOC: BICMAMMO 09:41
PROVIDERS: ATTEND Family Medicine
DX: Z12.31 Encounter for screening mammogram for malignant neoplasm of breast (principal); Z80.3 Family history of malignant neoplasm of breast
CPT/HCPCS: 77063; 77067

== ENCOUNTER 2018-07-30 18:26 | Observation (INO) | payer MEDICARE ==
[2018-07-30 18:51] LABS: Bilirubin Negative (Negative); Blood, Urine Small (Negative); Clarity CLOUDY (Clear); Glucose, Urine (Dipstick) >=1000 mg/dL (Negative); Leukocyte Negative (Negative); Nitrite Positive (Negative); Protein, Urine (Dipstick) > or equal to 300 mg/dL (Neg-Trace); Specific Gravity, Urine 1.028 (1.002-1.036); Urobilinogen 0.2 mg/dL (0.2-1.0); pH, Urine 6.5 (5.0-9.0)
[2018-07-30 18:53] LABS: Bacteria/HPF 4+ HPF (None Seen); Hyaline Casts/LPF 0-3 HYALINE CAST LPF (0-3 Hyaline); Squamous Epithelial 0-3 HPF (0-3); WBC/HPF 0-3 HPF (0-3)
[2018-07-30 19:08] LABS: #Lymphocytes 1.3 thou/uL (1.20-3.40); #Monocytes 0.2 thou/uL (0.11-0.59); #Neutrophils 12.4 thou/uL (1.40-6.50); %Basophils 0.1 % (0.0-1.0); %Eosinophils 0.1 % (0.0-10.0); %Lymphocytes 9.1 % (21.0-51.0); %Monocytes 1.1 % (0.0-10.0); %Neutrophils 89.5 % (42.0-75.0); Hemoglobin 13.1 g/dL (12.0-16.0); Mean Corpuscular HGB CONC 33.4 g/dL (32.0-36.0); Mean Corpuscular Hemoglobin 31.7 pg (27.0-31.0); Mean Corpuscular Volume 94.9 fL (78.0-98.0); Platelet Count 257 thou/uL (130-400); RBC Distribution Width 11.4 % (11.5-14.5); Red Blood Cell (RBC) Count 4.15 mill/uL (4.20-5.40); White Blood Cell (WBC) Count 13.8 thou/uL (4.8-10.8)
[2018-07-30 19:28] LABS: ALT (SGPT) 31 U/L (8-55); AST (SGOT) 16 U/L (5-34); Albumin 4.3 g/dL (3.4-4.8); Alkaline Phosphatase 81 U/L (40-150); Anion Gap 15 mmol/L (10-20); BUN (Urea Nitrogen) 21 mg/dL (9.8-20.1); Bilirubin, Total 0.4 mg/dL (0.2-1.2); Calc. Creatinine Clearance 0 mL/min (70-130); Calcium 9.8 mg/dL (7.8-10.44); Carbon Dioxide 27 mmol/L (23-31); Chloride 97 mmol/L (98-107); Estimated GFR-MDRD 64; Globulin 3.5 g/dL (2.4-3.5); Glucose 275 mg/dL (83-110); Lipase 17 U/L (8-78); Potassium 3.8 mmol/L (3.5-5.1); Protein, Total 7.8 g/dL (6.0-8.3); Sodium 135 mmol/L (136-145)
[2018-07-30] MEDS ORDERED: Ondansetron ODT 4 MG TAB ONE (19:37)
[2018-07-31] MEDS ORDERED: Sodium Chloride 0.9% 1,000 ML IV SCH (00:24)
[2018-07-31] MEDS ORDERED: Ondansetron PF 4 MG/2 ML Vial IVP PRN (00:24)
[2018-07-31] MEDS ORDERED: Ondansetron ODT 4 MG TAB SL PRN (00:24)
[2018-07-31] MEDS ORDERED: Acetaminophen 325 MG TAB PO PRN ×2 (00:24→00:37)
[2018-07-31] MEDS ORDERED: Dextrose 50% Abboject 50 ML SYRINGE SLOW IVP PRN (00:37)
[2018-07-31] MEDS ORDERED: cloNIDine 0.1 MG TAB PO PRN (00:37)
[2018-07-31] MEDS ORDERED: Dextrose 5% in Water 1,000 ML IV PRN (00:37)
[2018-07-31] MEDS ORDERED: HumaLOG 300 UNITS/3 ML VIAL SC PRN ×2 (00:37)
[2018-07-31] MEDS ORDERED: cefTRIAXone\\ROCEPHIN 1 GM in Sodium Chloride 0.9% 100 ML IVPB SCH (01:00)
[2018-07-31 02:25] VITALS: BMI 25.0
[2018-07-31] MEDS: Sodium Chloride 0.9% 1,000 ML IV SCH ×2 (02:48→10:32)
--- NOTE | 2018-07-31 04:39 | HP ---
PRIMARY CARE PHYSICIAN: Ismael Glynn DO. CHIEF COMPLAINT: Nausea, vomiting, and diarrhea. HISTORY OF PRESENT ILLNESS: Ms. Nance is a pleasant 78-year-old female who has a history of hypertension and diabetes as well as chronic kidney disease. She was in her usual state of health until earlier this morning. She says that she started having nausea, vomiting, and diarrhea. She says she vomited and had at least 5 times and at least 5 episodes of loose watery stool. She denies any blood in either the vomitus or the stool. She says that it happened so much that she began getting weak, getting cramps in her legs and feet and then when she stood up to try to walk, she could barely get around. She says that she had to hold onto the side of the wall because she was feeling dizzy and like she was about to fall. She denies having any fevers or chills, no abdominal pain, however. She came to the ER for evaluation and was found to be tachycardic and dehydrated. She was given 2 L of fluids in the ER, but still had a relatively high heart rate and for this reason, she is being placed in observation. She says her stomach upset is actually improved after she has eaten a little bit of soup that looks like it was brought from home and it appears as if the nausea and the diarrhea have started to slow down. She attributes her symptoms to eating some potato salad that have been in the refrigerator for over a week. REVIEW OF SYSTEMS: CONSTITUTIONAL: There has been no fevers, chills, no night sweats, no weight loss. HEENT: No headache. She did have some dizziness, however, primarily with standing. No sore throat. No rhinorrhea. No neck pain. No adenopathy. PULMONARY: No hemoptysis. No cough. No wheezing. CARDIOVASCULAR: She denies any chest pain. No shortness of breath. No PND. No orthopnea. GASTROINTESTINAL: As the history of present illness. GENITOURINARY: She denied any urinary frequency, hematuria. No hesitancy or no dysuria. MUSCULOSKELETAL: She complained of some muscle cramps in her legs around the time that her symptoms started and some generalized weakness. NEUROLOGIC: No focal weakness, however, no seizures. SKIN AND INTEGUMENT: No skin changes. No rash. ENDOCRINE: No heat or cold intolerance. No polyuria or polydipsia. PAST MEDICAL HISTORY: Significant for hypertension, diabetes mellitus type 2, hyperlipidemia, gout, and chronic kidney disease. PAST SURGICAL HISTORY: She had a cardiac catheterization as well as a 4-vessel bypass. ALLERGIES: TO SULFA, WHICH CAUSES FACIAL SWELLING. SOCIAL HISTORY: She would like to be a full code, but would not want to be placed on a ventilator for a long period of time. SOCIAL HISTORY: She is a nonsmoker and nondrinker. She is and she lives alone. FAMILY HISTORY: Significant for a father who had diabetes and heart disease. Also, her mother had diabetes and heart disease. MEDICATIONS: She says she is on Levemir and Trulicity and the blood pressure medicine and from her emergency room records, it appears that she is on; 1. Levemir 25 units subcu twice a day. 2. Trulicity 0.75 mg once a week. 3. Metoprolol 25 mg daily. 4. Metformin 500 mg 2 tablets twice a day. 5. Aspirin 81 mg daily. PHYSICAL EXAMINATION: GENERAL: She is alert and oriented. She appears to be in no acute distress. She is well developed and well nourished. VITAL SIGNS: Blood pressure is 144/80, heart rate 104, respiratory rate of 16, temperature is 97.7, and O2 saturation 98% on room air. HEENT: Her pupils are equal, round, and reactive to light. Extraocular muscles are intact. Her sclerae are anicteric. Tympanic membranes nonvisualized due to quite a bit of wax in the external canal. In her throat, she has poor dentition. No erythema. No exudates. NECK: There is no adenopathy, no bruits. LUNGS: Clear to auscultation. There is no wheezing, no rales, no rhonchi. CARDIOVASCULAR: She has a normal S1 and S2. I did not appreciate an S3 or S4. No murmurs, clicks, or rubs. ABDOMEN: Soft. It is nontender and nondistended. Positive for bowel sounds. No rebound. No guarding. EXTREMITIES: There is no edema. No calf tenderness. No joint effusions. SKIN AND INTEGUMENT: No skin changes. No rash. NEUROLOGIC: The exam is grossly nonfocal. Her muscle strength is 5/5 in upper and lower extremities. LABORATORY RESULTS: The white blood cell count is 13.8, hemoglobin 13.1, hematocrit is 39.4, and platelet count is 257. Sodium is 135, potassium 3.8, chloride is 97, CO2 is 27, BUN of 21, creatinine 0.86, glucose is 275. On her urinalysis, it was nitrite positive, small blood, and 4+ bacteria. ASSESSMENT: 1. This is a pleasant 78-year-old female who presents with nausea, vomiting, and diarrhea. Likely it is an infectious gastroenteritis, likely from the potato salad. It appears as her symptoms are actually improving; however, she still has some degree of dehydration and volume depletion. It is noted that her BUN and creatinine ratio is elevated. She will be placed in observation, started on IV fluids and we will reassess her in the a.m. I suspect this should be self limiting. 2. Urinary tract infection. This could be an asymptomatic bacteriuria. However, with her current symptomatology, we will go ahead and treat this with Rocephin. Urine culture is pending. 3. Diabetes mellitus. Keep her on her usual medications for diabetes as well as a sliding scale and we will have a diet as tolerated. 4. Blood pressure. We will hold her antihypertensives tonight and likely restart her beta-mando in the morning, it may require a much lower dose, however, depending on her vital signs in the morning. Hopefully, she will able to be discharged home later tomorrow afternoon. Job ID: [id number]
[2018-07-31 05:13] LABS: #Eosinphils 0.1 thou/uL (0.0-0.7); #Lymphocytes 2.8 thou/uL (1.20-3.40); #Neutrophils 9.2 thou/uL (1.40-6.50); %Basophils 0.2 % (0.0-1.0); %Eosinophils 0.5 % (0.0-10.0); %Lymphocytes 21.3 % (21.0-51.0); %Monocytes 7.4 % (0.0-10.0); %Neutrophils 70.6 % (42.0-75.0); Hemoglobin 10.9 g/dL (12.0-16.0); Mean Corpuscular HGB CONC 33.3 g/dL (32.0-36.0); Mean Corpuscular Hemoglobin 31.6 pg (27.0-31.0); Mean Corpuscular Volume 94.9 fL (78.0-98.0); Mean Platelet Volume 8.9 fL (7.4-10.4); Platelet Count 218 thou/uL (130-400); RBC Distribution Width 11.4 % (11.5-14.5); Red Blood Cell (RBC) Count 3.44 mill/uL (4.20-5.40)
[2018-07-31 05:27] LABS: Anion Gap 9 mmol/L (10-20); BUN (Urea Nitrogen) 15 mg/dL (9.8-20.1); Calc. Creatinine Clearance 70 mL/min (70-130); Calcium 8.4 mg/dL (7.8-10.44); Carbon Dioxide 27 mmol/L (23-31); Chloride 105 mmol/L (98-107); Estimated GFR-MDRD 79; Glucose 217 mg/dL (83-110); Potassium 3.6 mmol/L (3.5-5.1); Sodium 137 mmol/L (136-145)
[2018-07-31] MEDS ORDERED: Cefdinir 300 MG CAP PO SCH (09:00)
[2018-07-31] MEDS ORDERED: Enoxaparin Sodium 40 MG/0.4 ML SYRINGE SC SCH (09:00)
[2018-07-31] MEDS ORDERED: Insulin Glargine 15 UNITS in Pre-Filled Syringe 1 EACH SC SCH (11:45)
[2018-07-31] MEDS ORDERED: DULAGLUTIDE 0.75 MG SC SCH (11:45)
[2018-07-31] MEDS ORDERED: Metoprolol Tartrate 25 MG TAB PO SCH ×2 (11:45→21:00)
[2018-07-31] MEDS ORDERED: Dulaglutide [Trulicity] 0.75 MG SC SCH (12:45)
--- NOTE | 2018-07-31 15:19 | DIS ---
DATE OF ADMISSION: 07/31/2018 DATE OF DISCHARGE: 07/31/2018 DISPOSITION: Discharged home. PRIMARY CARE PROVIDER: Ismael Glynn DO FINAL DIAGNOSES: Acute gastroenteritis, resolved. Dehydration, resolved. Essential hypertension and diabetes mellitus type 2 without complications. DISCHARGE MEDICATIONS: Discharge medicines are the same as her home medicines. 1. Metformin 1000 mg twice a day. 2. Metoprolol-XL 25 mg a day. 3. Levemir 25 units subcu twice a day. 4. Trulicity 0.75 mg subcu q.7 days. 5. Aspirin 81 mg a day. ALLERGIES: ALLERGY TO SULFONAMIDES, ITCHING AND RASH. DIET: Diabetic. PENDING AT TIME OF DISCHARGE: Nothing. CODE STATUS: Full. HOSPITAL COURSE: The patient was admitted through [facility] with nausea, vomiting, and diarrhea. When she was seen this morning, it completely resolved. She was eating and drinking. She was feeling well. Abdomen examined twice that was after breakfast, I waited till after lunch. Once again, she has eaten. She is ready to go home. She feels well. Her white count was 13.8, followed by 13.0; hemoglobin 13.1 followed by 10.9; and platelet count 257,000 followed by 218,000. Her initial sodium 135, followup 137; potassium normal; initial BUN 21, followup 15; and blood sugars were elevated; however, she received none of her home medicines and she was given 15 units of Levemir at about noon. Her vital signs are stable. She feels good. She is being discharged home to take her usual medicines. She has been asked to follow up with her primary care doctor in one week. No consultations. No procedures. Job ID: [id number]
[2018-07-31 16:24] VITALS: BP 134/79; TEMP 98.4
[2018-07-31] MEDS ORDERED: metFORMIN 500 MG TAB PO SCH (17:00)
[2018-07-31] MEDS ORDERED: Insulin Glargine 25 UNITS in Pre-Filled Syringe 1 EACH SC SCH (21:00)
[2018-07-31] MEDS ORDERED: Non-Formulary Item 1 EACH (Levemir Flexpen [Levemir Flexpen] 25 UNIT) SC SCH (21:00)
[2018-08-01] MEDS ORDERED: Aspirin 81 mg Enteric Coated Tablet PO SCH (09:00)
== END 2018-07-31 16:28 | disposition home or self-care (01) ==
LOC: ERS 18:26 → T4-A 07-31 00:28
PROVIDERS: ADMIT Internal Medicine; ATTEND Internal Medicine
DX: R19.7 Diarrhea, unspecified (principal); R11.2 Nausea with vomiting, unspecified; I12.9 Hypertensive chronic kidney disease with stage 1 through stage 4 chronic kidney disease, or unspecified chronic kidney disease; E11.22 Type 2 diabetes mellitus with diabetic chronic kidney disease; N18.9 Chronic kidney disease, unspecified; E78.5 Hyperlipidemia, unspecified; M10.9 Gout, unspecified; N39.0 Urinary tract infection, site not specified; Z88.2 Allergy status to sulfonamides; Z79.82 Long term (current) use of aspirin; Z79.84 Long term (current) use of oral hypoglycemic drugs; Z79.899 Other long term (current) drug therapy
CPT/HCPCS: 80048; 80053; 82962 ×2; 83690; 85025 ×2; 87077; 87086; 87186; 96360; 96361 ×3; 96365; 96372; 97139; 99284; G0378; 36415; 36416; 81003; 81015; J0696; J1650; J1825; J3490; Q0162

== ENCOUNTER 2020-04-01 17:42 | Emergency (ER) | payer MEDICARE | END 2020-04-01 19:15 | disposition home or self-care (01) | LOC: ERS 17:42 | DX: I10 Essential (primary) hypertension (principal); E11.9 Type 2 diabetes mellitus without complications; Z79.4 Long term (current) use of insulin; Z79.82 Long term (current) use of aspirin; Z79.899 Other long term (current) drug therapy | CPT/HCPCS: 99283 ==

== ENCOUNTER 2023-10-28 08:23 | Outpatient (CLI) | payer MEDICARE | END 2023-10-28 08:24 | disposition home or self-care (01) | LOC: BICMAMMO 08:23 | PROVIDERS: ATTEND Family Medicine | DX: N63.14 Unspecified lump in the right breast, lower inner quadrant (principal) | CPT/HCPCS: 76642; 77065; G0279 ==